=== PATIENT | male | born 1985 | race Caucasian/White ===

== ENCOUNTER 2020-08-08 04:11 | Observation (INO) | payer BC ==
[~2020-08-08] VITALS: Ht 170.2 cm; Wt 90.7 kg
[2020-08-08 04:30] LABS: HEMOGLOBIN 17.3 gm/dl (14.0-17.5); RED BLOOD COUNT 5.56 M/UL (4.20-5.50); WHITE BLOOD COUNT 19.5 K/UL (4.5-11.0)
[2020-08-08 04:58] LABS: BUN/CREATININE RATIO 18 (0-10)
[2020-08-08] MEDS ORDERED: AMOX TR-K CLV1 EAC4 PO (09:44)
[2020-08-08] MEDS ORDERED: DAILY-VITE1 EACH PO (12:47)
[2020-08-08 15:33] LABS: BUN/CREATININE RATIO 14 (0-10)
[2020-08-09 03:50] LABS: HEMOGLOBIN 15.9 gm/dl (14.0-17.5); RED BLOOD COUNT 5.22 M/UL (4.20-5.50)
[2020-08-09 04:04] LABS: WHITE BLOOD COUNT 14.5 K/UL (4.5-11.0)
[2020-08-09 04:15] LABS: BUN/CREATININE RATIO 12 (0-10)
[2020-08-09] MEDS ORDERED: KEPPRA500 MG PO (10:28)
[2020-08-09] MEDS ORDERED: FLOXIN 0.3% OTIC5 ML EARRT (11:01)
== END 2020-08-09 12:58 | disposition home or self-care (01) ==
LOC: ER1 04:11 → CDU 10:25 → M/S 10:25
PROVIDERS: Emergency Medicine; Physician Assistant; ADMIT Internal Medicine
DX: G25.3 Myoclonus (principal); D72.829 Elevated white blood cell count, unspecified; H70.91 Unspecified mastoiditis, right ear; E87.2 Acidosis; S00.512A Abrasion of oral cavity, initial encounter; Z20.822 Contact with and (suspected) exposure to COVID-19; Z79.899 Other long term (current) drug therapy; W06.XXXA Fall from bed, initial encounter
CPT/HCPCS: 36415; 70450; 70551; 71045; 80048; 80053; 80307; 81001; 82009; 83036; 83605; 83735; 84100; 84439; 84443; 85025; 85610; 85730; 87040; 93005; 96365; 96376; 99285; G0378; G0480; J1953; J2060; J7030; J7070; U0002

== ENCOUNTER 2020-10-16 02:15 | Emergency (ER) | payer BC ==
[~2020-10-16 02:15] MED LIST: AMOX TR-K CLV1 EAC4 PO; DAILY-VITE1 EACH PO; FLOXIN 0.3% OTIC5 ML EARRT; KEPPRA500 MG PO
[2020-10-16] MEDS ORDERED: KEPPRA500 MG PO (05:07)
== END 2020-10-16 06:55 | disposition home or self-care (01) ==
LOC: ER1 02:15
PROVIDERS: Emergency Medicine
DX: G40.409 Other generalized epilepsy and epileptic syndromes, not intractable, without status epilepticus (principal)
CPT/HCPCS: 80048; 99284